=== PATIENT | male | born 1955 | race African-American/Black ===

== ENCOUNTER 2019-11-19 17:52 | Emergency (ER) | payer OTHER ==
[~2019-11-19] VITALS: Ht 185.4 cm; Wt 106.6 kg
[~2019-11-19 17:52] MED LIST: ASPIRIN EC81 M1 PO; BLOOD PRESSURE MED; GLIPIZIDE ER5 MG PO; GLUCOPHAGE500 MG PO; MICARDIS40 MG PO; NORCO 5-325 TA1 EACH PO
[2019-11-19 18:34] LABS: ABSOLUTE BASOPHILS 0.1 thou/uL (0.0-0.2); ABSOLUTE EOSINOPHILS 0.1 thou/uL (0.0-0.7); ABSOLUTE LYMPHOCYTES 3.1 thou/uL (0.8-5.3); ABSOLUTE MONOCYTES 0.6 thou/uL (0.0-1.2); ABSOLUTE NEUTROPHILS 3.8 thou/uL (1.6-8.1); BASOPHILS 1.1 %; HEMATOCRIT 37.9 % (42.0-52.0); HEMOGLOBIN 12.1 gm/dL (14.0-18.0); LYMPHOCYTES 40.6 %; MCH 24.5 pg (26.0-34.0); MCV 76.5 fL (80.0-100.0); MONOCYTES 7.6 %; NUCLEATED RBCS 0 /100WBC; PLATELET COUNT* 217 thou/uL (150-400); POLYS 49.7 %; RBC 4.95 mil/uL (4.50-6.00); RDW-CV 13.9 % (10.5-14.5); WBC 7.6 thou/uL (4.0-11.0)
[2019-11-19 18:37] LABS: PROTIME 10.7 Seconds (9.20-11.50)
[2019-11-19 18:39] LABS: CALCIUM 9.4 mg/dL (8.5-10.1); CREATININE 1.5 mg/dL (0.6-1.3); POTASSIUM 3.6 mmol/L (3.5-5.1)
[2019-11-19 18:49] LABS: ALBUMIN 3.9 g/dL (3.4-5.0); TOTAL BILIRUBIN 0.4 mg/dL (<0.1-1.0); TOTAL PROTEIN 7.7 g/dL (6.4-8.2)
[2019-11-19 19:12] LABS: URINE BILIRUBIN NEGATIVE (Negative); URINE BLOOD NEGATIVE (Negative); URINE CLARITY CLEAR; URINE COLOR YELLOW; URINE GLUCOSE-RANDOM NEGATIVE (Negative); URINE KETONES NEGATIVE (Negative); URINE LEUKOCYTES-REFLEX NEGATIVE (Negative); URINE NITRITE-REFLEX NEGATIVE (Negative); URINE PROTEIN NEGATIVE (Negative); URINE UROBILINOGEN 0.2 E.U./dl (0.2-1.0)
[2019-11-19 19:30] VITALS: BP 150/78
--- NOTE | 2019-11-20 12:19 | EKG ---
[place] [address] ELECTROCARDIOGRAM REPORT Name: JOAO MCCARTNEY Room: [facility]#: [id number] Admission: 11/19/19 Attend Phys: Discharge: 11/19/19 Date of : 59 Date of Service: 11/19/191804 Report #: [id number] THIS REPORT FOR: //name// [facility] ED Test Date: 2019-11-19 Test Time: 18:05:26 Pat Name: JOAO MCCARTNEY Department: Room: Gender: Requirements Manager: : [id number] Requested By: Kiley Pantoja Order Number: [id number] MD: Obinna Salmon Measurements Intervals [place] Rate: 65 P: 66 MS: 165 QRS: 37 QRSD: 94 T: 54 QT: 370 QTc: 385 Interpretive Statements Sinus rhythm Borderline T wave abnormalities Compared to ECG 06/22/2010 10:49:15 no change Electronically Signed On 11-20-2019 12:18:57 [employer] by Obinna Salmon [email or web address] <ELECTRONICALLY SIGNED> By: Obinna Salmon MD, [facility] 11/20/19 1218 1805 180 Obinna Salmon MD, [facility] /EPI
== END 2019-11-19 19:30 | disposition home or self-care (01) ==
LOC: M.ERS 17:52
PROVIDERS: Emergency Medicine
DX: I10 Essential (primary) hypertension (principal)

== ENCOUNTER → 2020-05-31 | Outpatient (CLI) | payer OTHER | LOC: M.ULTRA 10:57 | PROVIDERS: ATTEND Internal Medicine | DX: I86.1 Scrotal varices (principal); N43.3 Hydrocele, unspecified; R36.1 Hematospermia ==